=== PATIENT | female | born 1955 | race Caucasian/White ===

== ENCOUNTER 2020-03-17 09:03 | Outpatient (CLI) | payer MEDICARE, SELFPAY ==
--- NOTE | 2020-03-17 11:30 | NEURO_ITS ---
Impression: # Complains of pain and numbness of hands. # Bilateral Carpal Tunnel Syndrome, right more than left. # No ulnar neuropathy. # Normal needle/EMG exam. # Clinical correlation recommended. Nerve Conduction Studies Anti Sensory Summary Table Stim Site NR Peak (ms) P-T Amp (?V) Site1 Site2 Delta-P (ms) Dist (cm) Clifford (m/s) Left Median Anti Sensory (2-3nd Digit) Wrist 3.3 58.4 Wrist 2-3nd Digit 3.3 14.0 42 Wrist 3.4 30.9 Wrist 2-3nd Digit 3.3 14.0 42 Right Median Anti Sensory (2-3nd Digit) Wrist 6.6 23.5 Wrist 2-3nd Digit 6.6 14.0 21 Wrist 7.6 5.7 Wrist 2-3nd Digit 6.6 14.0 21 Left Radial Anti Sensory (Base 1st Digit) Wrist 1.9 26.4 Wrist Base 1st Digit 1.9 0.0 Right Radial Anti Sensory (Base 1st Digit) Wrist 2.4 25.0 Wrist Base 1st Digit 2.4 0.0 Left Ulnar Anti Sensory (5th Digit) Wrist 2.7 44.7 Wrist 5th Digit 2.7 14.0 52 Right Ulnar Anti Sensory (5th Digit) Wrist 2.3 54.7 Wrist 5th Digit 2.3 14.0 61 Motor Summary Table Stim Site NR Onset (ms) O-P Amp (mV) Site1 Site2 Delta-0 (ms) Dist (cm) Clifford (m/s) Left Median Motor (Abd Poll Brev) Wrist 4.1 3.9 Elbow Wrist 5.0 31.0 62 Elbow 9.1 8.2 Right Median Motor (Abd Poll Brev) Wrist 5.9 1.8 Elbow Wrist 3.9 29.0 74 Elbow 9.8 2.8 Left Ulnar Motor (Abd Dig Minimi) Wrist 2.3 5.9 A Elbow Wrist 5.3 30.0 57 A Elbow 7.6 4.5 Right Ulnar Motor (Abd Dig Minimi) Wrist 3.0 4.4 A Elbow Wrist 5.1 29.0 57 A Elbow 8.1 3.3 F Wave Studies NR F-Lat (ms) L-R F-Lat (ms) Left Median (Mrkrs) (Abd Poll Brev) 31.56 0.19 Right Median (Mrkrs) (Abd Poll Brev) 31.75 0.19 Left Ulnar (Mrkrs) (Abd Dig Min) 31.33 0.08 Right Ulnar (Mrkrs) (Abd Dig Min) 31.41 0.08 EMG Side Muscle Nerve Root Ins Act Fibs Amp Dur Recrt Comment Right 1stDorInt Ulnar C8-T1 Nml Nml Nml Nml Nml Right Ext Indicis Radial (Post Int) C7-8 Nml Nml Nml Nml Nml Right Ext Digitorum Radial (Post Int) C7-8 Nml Nml Nml Nml Nml Right BrachioRad Radial C5-6 Nml Nml Nml Nml Nml Right PronatorTeres Median C6-7 Nml Nml Nml Nml Nml Right Abd Poll Brev Median C8-T1 Nml Nml Nml Nml Nml Left 1stDorInt Ulnar C8-T1 Nml Nml Nml Nml Nml Left Ext Indicis Radial (Post Int) C7-8 Nml Nml Nml Nml Nml Left Ext Digitorum Radial (Post Int) C7-8 Nml Nml Nml Nml Nml Left BrachioRad Radial C5-6 Nml Nml Nml Nml Nml Left PronatorTeres Median C6-7 Nml Nml Nml Nml Nml Left Abd Poll Brev Median C8-T1 Nml Nml Nml Nml Nml Right ABD Dig Min Ulnar C8-T1 Nml Nml Nml Nml Nml Left ABD Dig Min Ulnar C8-T1 Nml Nml Nml Nml Nml MTDD
== END 2020-03-17 09:04 | disposition home or self-care (01) ==
PROVIDERS: PCP Family Medicine; Visit Provider Family Medicine
DX: G56.03 Carpal tunnel syndrome, bilateral upper limbs (principal)
CPT/HCPCS: 95886; 95911

== ENCOUNTER 2020-04-21 13:00 | Outpatient (CLI) | payer MEDICARE, SELFPAY ==
--- NOTE | 2020-04-21 13:04 | ECG_ITS ---
Measurements Intervals [place] Rate: 50 P: 36 MT: 146 QRS: -3 QRSD: 90 T: 4 QT: 410 QTc: 377 Interpretive Statements SINUS BRADYCARDIA LOW QRS VOLTAGE IN PRECORDIAL LEADS DELAYED PRECORDIAL R/S TRANSITION BORDERLINE T WAVE ABNORMALITY- INFERIOR LEADS BASELINE ARTIFACT- I, II, III, AVR, AVL, AVF BORDERLINE ECG Electronically Signed On 04-21-2020 13:41:03 INSURANCE [employer] by Bebeto Zazueta D.O.
[2020-04-21 13:49] LABS: Anion Gap 6 mmol/L (8-16); Blood Urea Nitrogen 15 mg/dL (7-17); Calcium 9.5 mg/dL (8.4-10.2); Carbon Dioxide 33 mmol/L (22-30); Chloride 99 mmol/L (98-107); Estimated Glomerular Filt Rate > 60; Glucose 124 mg/dL (65-105); Potassium 4.1 mmol/L (3.4-5.0); Sodium 138 mmol/L (137-145)
== END 2020-04-21 13:01 | disposition home or self-care (01) ==
PROVIDERS: Anesthesiology; PCP Family Medicine; Visit Provider Orthopaedic Surgery
DX: E11.9 Type 2 diabetes mellitus without complications (principal); Z01.818 Encounter for other preprocedural examination; R94.31 Abnormal electrocardiogram [ECG] [EKG]
CPT/HCPCS: 36415; 80048; 93005

== ENCOUNTER → 2020-04-23 05:59 | Outpatient (CLI) | payer MEDICARE, SELFPAY ==
[2020-04-23 19:10] LABS: SARS-CoV-2 RNA PCR Negative
== END ==
PROVIDERS: PCP Family Medicine; Visit Provider Orthopaedic Surgery
DX: Z01.812 Encounter for preprocedural laboratory examination (principal); Z20.822 Contact with and (suspected) exposure to COVID-19
CPT/HCPCS: C9803; U0003; U0005

== ENCOUNTER 2020-04-26 00:30 | Day surgery (SDC) | payer MEDICARE, SELFPAY ==
[2020-04-19 10:06] VITALS: BMI 30.2
--- NOTE | 2020-04-25 09:37 | WPDANESEPPF ---
Anes - Initial Pre Proc Eval Procedure: Operation Date: 04/26/20 13:30 Proposed Procedures p Right Carpal Tunnel Release - Julian Kessler MD Date/Time: 04/25/20 09:37 Surgeon: Julian Kessler MD Pre Op Diagnosis: right carpal tunnel syndrome Patient Data Age: 64 Gender: F Height: 1.75 m Weight: 92.7 kg Allergies Allergy/AdvReac Type Severity Reaction Status Date / Time No Known Allergies Allergy Verified 04/19/20 10:02 Home Medications Medication Instructions Recorded Confirmed Type escitalopram oxalate 20 mg tablet 20 mg PO DAILY #90 tablet 07/08/19 04/19/20 Rx oxybutynin chloride 15 mg 15 mg PO DAILY #90 tablet 08/06/19 04/19/20 Rx tablet,extended release 24 hr metformin 500 mg tablet 500 mg PO TID #270 tablet 09/08/19 04/19/20 Rx enalapril maleate 20 mg tablet See Rx Instructions .ROUTE 03/30/20 04/19/20 Rx .COMPLEX #90 tablet clobetasol 1 applic TOPICAL DAILY PRN 04/19/20 04/19/20 History estradiol 1 g VAGINAL 3XW 04/19/20 04/19/20 History mometasone 1 applic TOPICAL DAILY PRN 04/19/20 04/19/20 History naproxen sodium [Aleve] 440 mg PO HS 04/19/20 04/19/20 History simvastatin 20 mg PO HS 04/19/20 04/19/20 History Patient hx anesthesia problems: none Family hx anesthesia problems: none PMFSH Past Medical History Medical History (Updated 04/15/20 @ 09:24 by Julian Kessler MD) Carpal tunnel syndrome, bilateral .2020 ncs: bilat carpal tunnel( right worse than left) Diverticulosis Lump of right breast Mixed hyperlipidemia Normal colonoscopy 5.2016 diverticulosis. repeat in 10 years Osteoarthritis Ovarian cyst (~1961) Postmenopausal Spinal stenosis of lumbar region Type 2 diabetes mellitus without complications Urge incontinence of urine Venous stasis dermatitis of left lower extremity Surgical History Surgical History (Updated 04/04/20 @ 15:38 by Alma Mchugh) History of knee replacement (~2016) Hx of total hysterectomy (~1989) Family History Family History (Updated 04/04/20 @ 15:43 by Alma Mchugh) Mother Ovarian cancer genetic susceptibility Osteoporosis History of stroke Father Dementia Emphysema of lung Aortic aneurysm Anemia Social History Social History Smoking status: Never smoker Second hand tobacco smoke exposure: No Alcohol intake: current Alcohol use details: STATES MAYBE 2 DRINKS/6 MONTHS Substance use: never Substance use type: does not use Living arrangements: alone Spiritual care concerns: No Anes - Eval Final PreProcedure Day of Procedure 04/25/20 09:37 Patient weight: obese Heart: regular rate and rhythm Lungs: clear to auscultation and normal air movement Airway: Mallampati scale class II Neurological: alert and oriented Last oral intake: >/= 8 hours ASA classification: III Emergent: no Anesthetic plan: proceed Anesthesia type and monitoring: general LMA and standard monitoring Informed Consent: The patient's anesthetic plan and its attendant risks and benefits were discussed with the patient/family/POA. Questions were solicited and answers provided to the satisfaction of the patient/family/POA.
[2020-04-26 11:40] VITALS: BP 127/73; PULSE 63; RESP 18; TEMP 36.9; O2SAT 96
[2020-04-26] MEDS: ACETAMINOPHEN 500 MG TABLET 1000 MG PO (12:03)
[2020-04-26] MEDS: LACTATED RINGERS 1,000 ML 30 ML IV CONT ×2 (12:14→13:39)
[2020-04-26] MEDS: KETOROLAC 15 MG/ML VIAL (*BKC) IV PUSH (12:16)
--- NOTE | 2020-04-26 12:21 | WPDHPUPDATE1 ---
History and Physical Update Update Date/Time: 04/26/20 12:21 History and Physical has been reviewed, including an updated exam of the patient. There are NO changes in the patient's condition. Patient is in no distress. Unlabored breathing. Risks, benefits, and alternatives have been discussed and questions answered. Patient agrees to proceed with procedure.
[2020-04-26] MEDS: ceFAZolin 2 GM/D5W 50 ML 2 GM/50 ML BAG IVPB (12:58)
[2020-04-26 13:05] LABS: Glucose Point of Care 121 (65-105)
[2020-04-26] MEDS: BUPIVACAINE/EPINEPHRINE 0.5% 30 ML VIAL 10 ML INFILTRATE (13:14)
[2020-04-26 13:39] VITALS: BP 97/46; PULSE 57; RESP 18; O2SAT 97
--- NOTE | 2020-04-26 13:55 | PM.PROC ---
Procedure Note - Detailed Date of procedure: 04/26/20 Pre-op diagnosis: right carpal tunnel syndrome Right Carpal Tunnel Syndrome Post-op diagnosis: same Procedure performed: Carpal Tunnel Release, right Description of procedure: The soft tissues appeared to be somewhat inflamed consistent with the severe chronic palmar eczema. Anesthesia: [facility] Surgeon: Julian Kessler MD Avionics Integration Engineer: Shanti Lynne PA-C Estimated blood loss (mL): 1 Complications: None Condition: stable Findings: Physician accounts receivable assistant, Shanti Lynne PA-C, required for surgery; including tissue retraction, wound closure, and dressing placement. Operative details. The hand was prepped and draped in the usual sterile fashion sedation anesthesia was given with propofol. The proposed incision was marked using typical anatomic landmarks. 6ML 0.5% Marcaine with epinephrine was injected along the incision line and at the distal forearm. The limb was exsanguinated and the tourniquet inflated to 250 millimeters of mercury. A longitudinal incision was taken sharply. Dissection was brought down to the transverse carpal ligament. Under direct vision the ligament was incised sharply. The proximal release was carried out with dissection scissors. The contents of the carpal canal were protected with a [place] elevator. The transverse carpal ligament was confirmed to be widely patent. The tourniquet was released. Hemostasis was obtained. The wound was closed with a horizontal mattress Prolene suture. A sterile bulky dressing was applied. The patient was brought to the recovery room in stable condition. There were no complications.
[2020-04-26 14:10] VITALS: BP 102/48; PULSE 50; O2SAT 93
--- NOTE | 2020-04-26 14:38 | SUR.PHASEII ---
post-op RN didn't get an accucheck prior to patient having oral intake.
[2020-04-26 14:40] VITALS: BP 105/56; PULSE 44; O2SAT 92
== END 2020-04-26 15:05 | disposition home or self-care (01) ==
PROVIDERS: PCP Family Medicine; Visit Provider Orthopaedic Surgery
PROC: (CPT 64721; principal; 2020-04-26 13:30)
DX: G56.01 Carpal tunnel syndrome, right upper limb (principal); E78.2 Mixed hyperlipidemia; E11.9 Type 2 diabetes mellitus without complications; I87.8 Other specified disorders of veins; N39.41 Urge incontinence; Z79.84 Long term (current) use of oral hypoglycemic drugs; E66.9 Obesity, unspecified; Z68.30 Body mass index [BMI] 30.0-30.9, adult
CPT/HCPCS: 64721; 82948; A9270; J0690; J1885; J2250; J2405; J2704; J3010; J7120

== ENCOUNTER 2021-01-23 11:14 | Emergency (ER) | payer MEDICARE, SELFPAY ==
--- NOTE | ~2021-01-23 | XR_ITS ---
EXAMINATION: XR nasal bones min 3V EXAM DATE: 01/23/2021 11:58 INDICATION: hit in nose with dog toy today, pain/bruising. TECHNIQUE: Frontal, bilateral lateral projections of the nasal bones. There is no prior study for c omparison. FINDINGS: No displaced nasal bone fractures. There may be small to moderate-sized bilateral maxillary sinus mucous retention cysts. Otherwise sinuses appear well-aerated. Orbits are unremarkable. IMPRESSION: No acute fracture. Possible maxillary sinus retention cysts. Reviewed, dictated and finalized at location A. [facility]
[2021-01-23 12:00] VITALS: BP 149/79; PULSE 67; RESP 16; TEMP 36.1; O2SAT 99
--- NOTE | 2021-01-23 12:36 | ED.GENADULT ---
HPI - General Adult General Chief complaint: Unspecified Stated complaint: Nose Pain Time Seen by Provider: 01/23/21 12:37 Source: patient Mode of arrival: ambulatory Limitations: no limitations History of Present Illness HPI narrative: Haylie Vogt is a 65 yo female with PMH of depression, high blood pressure, diabetes T2 high cholesterol [facility] getting hit in the face with a dog toy which is caused pain and bruising. It occurred this morning, it hurt a crunching noise when her in the nose and she was concerned that she may have fractured her nose Related Data Home Medications Medication Instructions Recorded Confirmed clobetasol 1 applic TOPICAL DAILY PRN 04/19/20 12/29/20 estradiol 1 g VAGINAL 3XW 04/19/20 12/29/20 mometasone 1 applic TOPICAL DAILY PRN 04/19/20 12/29/20 trospium 20 mg tablet 20 mg PO BID 06/21/20 12/29/20 Allergies Allergy/AdvReac Type Severity Reaction Status Date / Time No Known Allergies Allergy Verified 12/29/20 14:01 Review of Systems Review of Systems: CONSTITUTIONAL: Denies fever, chills, sweats. EYES: Denies visual changes, redness, discharge. ENT: Denies rhinorrhea, congestion, sore throat, otalgia. CARDIOVASCULAR: Denies chest pain, palpitations, edema. RESPIRATORY: Denies dyspnea, wheezing, cough GASTROINTESTINAL: Denies abdominal pain, nausea, vomiting, diarrhea. GENITOURINARY: Denies dysuria, hematuria, abnormal discharge SKIN: Denies rash or itching. NEUROLOGIC: Denies numbness, or focal weakness. PSYCHIATRIC: Denies anxiety or depression. Pain and bruising of nose after being hit this morning with dog toy PMFSH Past Medical History Medical History Bereavement Carpal tunnel syndrome, bilateral 1.2020 ncs: bilat carpal tunnel( right worse than left) Diverticulosis Lump of right breast Major depressive disorder Mixed hyperlipidemia Normal colonoscopy 5.2016 diverticulosis. repeat in 10 years Osteoarthritis Ovarian cyst (~1961) Postmenopausal Spinal stenosis of lumbar region Type 2 diabetes mellitus without complications Urge incontinence of urine Venous stasis dermatitis of left lower extremity Surgical History Surgical History H/O bilateral oophorectomy History of knee replacement (~2017) Hx of appendectomy Hx of total hysterectomy (~1989) Family History Family History Mother Ovarian cancer genetic susceptibility Osteoporosis History of stroke Father Dementia Emphysema of lung Aortic aneurysm Anemia Social History Social History Second hand tobacco smoke exposure: No Alcohol intake: current Alcohol use details: STATES MAYBE 2 DRINKS/6 MONTHS Substance use: never Substance use type: does not use Spiritual care concerns: No Comments At time of signature, I agree with nursing past medical, surgical, social and family history. There is no relevant family history pertinent to the presenting complaint. Exam Narrative: GENERAL: This is a well-nourished, well-developed patient, in mild distress. HEAD: normocephalic, atraumatic. EYES: Sclera clear/white. Vision is grossly intact. EARS: External ears normal, auditory canals clear and without drainage, TMs normal without perforation. Hearing grossly intact. NOSE: External nose normal without nasal discharge, nares without redness, ecchymosis right side of sinus swelling THROAT: Mucous membranes moist, NECK: Neck supple, non-tender CARDIOVASCULAR: Regular rate and rhythm without murmurs, gallops, or rubs. RESPIRATORY: Clear to auscultation. Breath sounds equal bilaterally. No wheezes, rales, or rhonchi. GASTROINTESTINAL: Abdomen soft, SKIN: warm, intact with no suspicious lesions or rash, good texture and turgor. NEURO: awake, alert, and oriented
== END 2021-01-23 13:06 | disposition home or self-care (01) ==
PROVIDERS: Emergency Provider Nurse Practitioner; PCP Family Medicine
DX: S09.92XA Unspecified injury of nose, initial encounter (principal); W22.8XXA Striking against or struck by other objects, initial encounter; I10 Essential (primary) hypertension; E11.9 Type 2 diabetes mellitus without complications; E78.00 Pure hypercholesterolemia, unspecified; M19.90 Unspecified osteoarthritis, unspecified site; M48.061 Spinal stenosis, lumbar region without neurogenic claudication; I87.8 Other specified disorders of veins; Z96.659 Presence of unspecified artificial knee joint
CPT/HCPCS: 70160; 99213; G0463